=== PATIENT | female | born 1945 | race Caucasian/White ===

== ENCOUNTER 2019-01-13 12:10 | Observation (INO) | payer MEDICARE ==
[~2019-01-13] VITALS: Ht 154.9 cm; Wt 73.3 kg
[2019-01-13] MEDS ORDERED: ASPIRIN 81 MG TABLET CHEW PO ONE ×2 (12:30→16:30)
[2019-01-13 13:22] LABS: BASOPHILS # (AUTO) 0.08 x10^3/uL (0-0.1); BASOPHILS % (AUTO) 2 % (0-1); EOSINOPHILS # (AUTO) 0.08 x10^3/uL (0-0.4); EOSINOPHILS % (AUTO) 2 % (1-7); LYMPHOCYTES # (AUTO) 2.17 x10^3/uL (1-3.4); LYMPHOCYTES % (AUTO) 42 % (22-44); MD NO; MEAN CORPUSCULAR HEMOGLOBIN 31.6 pg (27.0-34.8); MEAN CORPUSCULAR HGB CONC 33.9 g/dL (32.4-35.8); MEAN CORPUSCULAR VOLUME 93.1 fL (80-100); MEAN PLATELET VOLUME 9.9 fL (7.4-10.4); MONOCYTES # (AUTO) 0.41 x10^3/uL (0.2-0.8); MONOCYTES % (AUTO) 8 % (2-9); NEUTROPHILS # (AUTO) 2.45 x10^3/uL (1.8-6.8); NEUTROPHILS % (AUTO) 47 % (42-75); PLATELET COUNT 239 x10^3/uL (130-400); RED BLOOD COUNT 4.81 x10^6/uL (3.82-5.3); RED CELL DISTRIBUTION WIDTH 12.4 % (9.6-15.2)
[2019-01-13 13:34] LABS: ALANINE AMINOTRANSFERASE 21 U/L (12-78); ALBUMIN 4.2 g/dL (3.4-5.0); ANION GAP 6 mmol/L (5-15); CALCIUM 9.5 mg/dL (8.5-10.1); CHLORIDE 113 mmol/L (98-107); CREATININE 0.93 mg/dL (0.55-1.02)
[2019-01-13 13:38] LABS: ALKALINE PHOSPHATASE 55 U/L (45-117); BILIRUBIN,TOTAL 0.5 mg/dL (0.2-1.0); TOTAL PROTEIN 7.2 g/dL (6.4-8.2); TROPONIN I < 0.015 ng/mL (0.000-0.045)
--- NOTE | 2019-01-13 15:50 | NUR ---
TRIAGE NOTE: PALPITATIONS FOR A COUPLE DAYS, ROOM SPINNING SINCE LAST NIGHT. PT DENIES CP OR PALPITATIONS NOW, +DIZZINESS AND SOB Pt to room, changed into gown and all monitors. NSR noted. Pt states that she ran out of her lexapro and welbutrin last week and thinks she may be having a reaction to stopping those medications abruptly. Pt without complaint at this time, though she states that she feels anxious to go home as she thinks these symptoms will return.
--- NOTE | 2019-01-13 16:01 | NUR ---
Dr. Amaya at bedside to evaluate pt.
[2019-01-13] MEDS ORDERED: escitalopram PO (16:03)
[2019-01-13] MEDS ORDERED: SODIUM CHLORIDE FLUSH 10ML SYR IVF ONE (16:30)
--- NOTE | 2019-01-13 16:45 | NUR ---
SERGEANT OF CORRECTIONS, Satnam, at bedside to evaluate pt for admission.
[2019-01-13 16:46] LABS: T4 (THYROXINE) 8.7 mcg/dL (4.8-13.9); THYROID STIMULATING HORMONE 6.12 mIU/L (0.358-3.740)
[2019-01-13] MEDS ORDERED: SODIUM CHLORIDE 0.9% 1,000 ML IV SCH (17:09)
[2019-01-13] MEDS ORDERED: hydrALAzine 20 MG/ML, 1ML IVPush PRN (17:30)
[2019-01-13] MEDS ORDERED: POLYETHYLENE GLYCOL 17 GM PACKET PO PRN (17:30)
[2019-01-13] MEDS ORDERED: ONDANSETRON ODT 4 MG PO PRN (17:30)
[2019-01-13] MEDS ORDERED: ONDANSETRON 2MG/ML, 2ML IVPush PRN (17:30)
[2019-01-13] MEDS ORDERED: ENALAPRILAT 1.25 MG/ML, 2ML IVPush PRN (17:30)
[2019-01-13] MEDS ORDERED: DOCUSATE 100 MG CAPSULE PO PRN (17:30)
[2019-01-13] MEDS ORDERED: BISACODYL 10 MG SUPP PR PRN (17:30)
[2019-01-13] MEDS ORDERED: ASPIRIN 81 MG TABLET CHEW ONE (17:31)
[2019-01-13] MEDS ORDERED: ENOXAPARIN 40 MG/0.4 ML ONE (17:31)
[2019-01-13] MEDS: ENOXAPARIN 40 MG/0.4 ML SQ SCH (17:38)
--- NOTE | 2019-01-13 17:39 | NUR ---
Pt medicated per MAR.
[2019-01-13 18:13] LABS: TROPONIN I < 0.015 ng/mL (0.000-0.045)
[2019-01-13 18:57] LABS: TROPONIN I < 0.015 ng/mL (0.000-0.045)
[2019-01-13] MEDS: ESCITALOPRAM 10MG TABLET PO SCH (19:00)
[2019-01-13] MEDS: CARBIDOPA/LEVODOPA 25 MG/100 MG TABLET PO SCH ×2 (19:00→21:00)
[2019-01-13] MEDS ORDERED: OMEP-110 PO (19:04)
[2019-01-13] MEDS ORDERED: CARB1TAB2 PO (19:07)
[2019-01-13] MEDS ORDERED: BUPR-86 PO (19:07)
[2019-01-13] MEDS ORDERED: SIMV40TA PO (19:07)
--- NOTE | 2019-01-13 19:23 | NUR ---
Pt moved to hospital bed, pt and family aware that she will be staying in the ED until a room opens up on the floor.
--- NOTE | 2019-01-13 20:00 | NUR ---
Pt resting on gurney, pt ate dinner with her family. Spouse remains at bedside. IVF running. VSS.
[2019-01-13] MEDS ORDERED: SIMVASTATIN 40 MG TABLET PO SCH (21:00)
--- NOTE | 2019-01-13 21:01 | NUR ---
Pt resting on gurney, pt now stating that she's feeling normal and tired. Pt made ready to sleep. Spouse aware that she does not have a room upstairs yet, but he will call in the morning and see where she is. Pt's spouse to go home now.
--- NOTE | 2019-01-13 22:10 | NUR ---
Telephone SBAR report given to RNLaura. Pt to room with EDT.
[2019-01-13] MEDS: ACETAMINOPHEN 325 MG TABLET PO PRN (22:41)
[2019-01-13 23:04] VITALS: BP 101/59
[2019-01-14 00:21] LABS: CULTURE INDICATED? YES; MICROSCOPIC INDICATED
[2019-01-14 01:30] VITALS: BP 101/62
[2019-01-14 05:23] LABS: ANION GAP 5 mmol/L (5-15); CALCIUM 8.7 mg/dL (8.5-10.1); CHLORIDE 118 mmol/L (98-107); CREATININE 0.99 mg/dL (0.55-1.02)
[2019-01-14 05:32] LABS: BASOPHILS # (AUTO) 0.04 x10^3/uL (0-0.1); BASOPHILS % (AUTO) 1 % (0-1); EOSINOPHILS % (AUTO) 2 % (1-7); LYMPHOCYTES # (AUTO) 1.98 x10^3/uL (1-3.4); LYMPHOCYTES % (AUTO) 41 % (22-44); MD NO; MEAN CORPUSCULAR HGB CONC 33.7 g/dL (32.4-35.8); MEAN CORPUSCULAR VOLUME 94.8 fL (80-100); MEAN PLATELET VOLUME 9.7 fL (7.4-10.4); MONOCYTES # (AUTO) 0.43 x10^3/uL (0.2-0.8); MONOCYTES % (AUTO) 9 % (2-9); NEUTROPHILS # (AUTO) 2.31 x10^3/uL (1.8-6.8); NEUTROPHILS % (AUTO) 48 % (42-75); PLATELET COUNT 183 x10^3/uL (130-400); RED BLOOD COUNT 3.94 x10^6/uL (3.82-5.3); RED CELL DISTRIBUTION WIDTH 12.9 % (9.6-15.2)
[2019-01-14 08:20] VITALS: BP 112/73
[2019-01-14] MEDS: ACETAMINOPHEN 325 MG TABLET PO PRN ×2 (08:22→17:54)
[2019-01-14] MEDS: ESCITALOPRAM 10MG TABLET PO SCH (08:23)
[2019-01-14] MEDS ORDERED: BUPROPION SR 150 MG TABLET PO SCH (09:00)
[2019-01-14] MEDS ORDERED: REGADENOSON 0.4 MG/5 ML SYRINGE ONE (11:21)
[2019-01-14] MEDS: CARBIDOPA/LEVODOPA 25 MG/100 MG TABLET PO SCH ×2 (12:52→17:54)
[2019-01-14 14:00] VITALS: BP 146/56
[2019-01-14] MEDS ORDERED: ESCI10TA PO (16:44)
[2019-01-14] MEDS: ENOXAPARIN 40 MG/0.4 ML SQ SCH (17:59)
== END 2019-01-14 20:14 | disposition home or self-care (01) ==
LOC: ED 16:41 → INTOOBSV 16:42 → EDIP 16:42 → ED 16:54 → 5SO 20:16
PROVIDERS: ADMIT Internal Medicine; ATTEND Internal Medicine
DX: R55 Syncope and collapse (principal); I10 Essential (primary) hypertension; E78.5 Hyperlipidemia, unspecified; F32.9 Major depressive disorder, single episode, unspecified; F41.9 Anxiety disorder, unspecified; G20 Parkinson's disease; I08.1 Rheumatic disorders of both mitral and tricuspid valves; Z66 Do not resuscitate
CPT/HCPCS: 36415; 71046; 78452; 80048; 80053; 81001; 83735; 84100; 84436; 84443; 84484; 85025; 87086; 93005; 93017; 93306; 96360; 96361; 96372; 99284; A9502; C9898; G0378; J1650; J2785; J7030

== ENCOUNTER → 2019-05-03 | Outpatient (CLI) | payer MEDICARE ==
[~2019-05-03] MED LIST: BUPR-86 PO; CARB1TAB2 PO; ESCI10TA PO; GADOBUTROL 7.5 MMOL/7.5 ML PFS ONE; OMEP-110 PO; SIMV40TA PO; escitalopram PO
== END | disposition home or self-care (01) ==
LOC: CFH 09:21
PROVIDERS: ATTEND Family Medicine
DX: G20 Parkinson's disease (principal); R42 Dizziness and giddiness
CPT/HCPCS: 70553; A9585

== ENCOUNTER 2019-05-17 09:57 | Outpatient (CLI) | payer MEDICARE | END 2019-05-17 23:59 | disposition home or self-care (01) | LOC: CARD 09:57 | PROVIDERS: ATTEND Family Medicine | DX: R00.2 Palpitations (principal) | CPT/HCPCS: 93225; 93226 ==

== ENCOUNTER 2020-12-28 20:01 | Emergency (ER) | payer MEDICARE ==
[~2020-12-28] VITALS: Ht 152.4 cm; Wt 73.3 kg
[~2020-12-28 20:01] MED LIST changes: +ASPI1TAB31 PO; +BUPR150T13 PO; -ESCI10TA PO; +ESCI10TA97 PO; +FENO160T PO; -GADOBUTROL 7.5 MMOL/7.5 ML PFS ONE
--- NOTE | 2020-12-28 21:28 | NUR ---
PIV PLACED BY FOOD BEVERAGE SERVER. LABS DRAWN AND COLLECTED BY CONTROLLED AREA CHECKER.
[2020-12-28 21:30] LABS: BASOPHILS % (AUTO) 2 % (0-1); EOSINOPHILS % (AUTO) 2 % (1-7); LYMPHOCYTES % (AUTO) 38 % (22-44); MEAN CORPUSCULAR HEMOGLOBIN 32.5 pg (27.0-34.8); MEAN CORPUSCULAR HGB CONC 34.4 g/dL (32.4-35.8); MEAN PLATELET VOLUME 9.7 fL (7.4-10.4); MONOCYTES % (AUTO) 8 % (2-9); NEUTROPHILS % (AUTO) 51 % (42-75); PLATELET COUNT 188 x10^3/uL (130-400); RED BLOOD COUNT 4.47 x10^6/uL (3.82-5.3); RED CELL DISTRIBUTION WIDTH 12.8 % (9.6-15.2)
[2020-12-28] MEDS ORDERED: SODIUM CHLORIDE FLUSH 10ML SYR IVF ONE (21:30)
[2020-12-28 21:33] LABS: MD NO
[2020-12-28 21:40] LABS: ALBUMIN 3.6 g/dL (3.4-5.0); ANION GAP 9 mmol/L (5-15); CALCIUM 9.6 mg/dL (8.5-10.1); CHLORIDE 111 mmol/L (98-107)
[2020-12-28 21:44] LABS: ALANINE AMINOTRANSFERASE 12 U/L (12-78); ALKALINE PHOSPHATASE 48 U/L (45-117); BILIRUBIN,TOTAL 0.3 mg/dL (0.2-1.0); CREATININE 0.98 mg/dL (0.55-1.02); TOTAL PROTEIN 6.6 g/dL (6.4-8.2)
--- NOTE | 2020-12-28 21:50 | NUR ---
PT AMBULATED TO RESTROOM WITH STEADY GAIT TO PROVIDE URINE SAMPLE. UA COLLECTED AND TAKEN TO LAB.
[2020-12-28] MEDS ORDERED: MORPHINE SULFATE 4 MG/ML, 1ML ONE (21:59)
[2020-12-28] MEDS ORDERED: ONDANSETRON 2MG/ML, 2ML ONE (21:59)
[2020-12-28] MEDS ORDERED: MORPHINE SULFATE 4 MG/ML, 1ML IVPush PRN (22:00)
[2020-12-28] MEDS ORDERED: OMNIPAQUE 350 MG/ML, 100ML BOTTLE ONE (22:00)
[2020-12-28] MEDS ORDERED: ONDANSETRON 2MG/ML, 2ML IVPush ONE (22:00)
[2020-12-28] MEDS ORDERED: KETOROLAC 30 MG/1 ML ONE (22:01)
[2020-12-28 22:05] VITALS: BP 154/73
[2020-12-28 22:08] LABS: MICROSCOPIC INDICATED
--- NOTE | 2020-12-28 22:28 | NUR ---
REPORT GIVEN TO ANTHONY PEARCE
[2020-12-28] MEDS ORDERED: KETOROLAC 30 MG/1 ML IVPush ONE (22:30)
[2020-12-28] MEDS ORDERED: KETOROLAC 30 MG/1 ML IM ONE (22:30)
[2020-12-28] MEDS ORDERED: CEFTRIAXONE PMX 1GM/50ML 50 ML IV ONE (23:00)
[2020-12-28] MEDS ORDERED: CEFTRIAXONE PMX 1GM/50ML 50 ML ONE (23:15)
== END 2020-12-28 23:58 | disposition home or self-care (01) ==
LOC: ED 20:31
DX: N30.00 Acute cystitis without hematuria (principal); K59.00 Constipation, unspecified; R10.84 Generalized abdominal pain; M54.5 Low back pain; R94.31 Abnormal electrocardiogram [ECG] [EKG]
CPT/HCPCS: 36415; 74177; 80053; 81001; 83690; 85025; 87086; 93005; 96365; 96375; 99285; J0696; J1885; Q9967